=== PATIENT | male | born 1980 | race Caucasian/White ===

== ENCOUNTER → 2018-11-29 12:49 | Outpatient (CLI) | payer OTHER, SELFPAY ==
--- NOTE | 2018-11-29 12:52 | MR_ITS ---
MR shoulder LT w con, IR arthrogram shoulder LT HISTORY:Left shoulder injury with pain and limited range of motion ITS.REASON: ARTHROGRAM ORDERING PHYSICIAN: Suad Talamantes MD PATIENT AGE: 38 years Comparison: 09/25/2018 Arthrogram technique: Following obtaining informed consent using fluoroscopic guidance and local anesthesia with 1% buffered lidocaine, a 25-gauge needle was inserted into the shoulder joint using the anterior technique. Approximately 15 mL 7 mixture of Optiray, lidocaine, and gadolinium was injected into the shoulder joint. The patient tolerated the procedure well without evidence of immediate complication. TECHNIQUE: Standard multiplanar multiecho sequences are performed without contrast. FINDINGS: Arthrogram images show no evidence of rotator cuff tear. Contrast is present within the shoulder joint. No evidence of any subcapsular this. MRI arthrogram: Mild hypertrophic changes are present at the acromioclavicular joint. No evidence of complete or full-thickness tear of the supraspinatus tendon. There is some irregularity along the undersurface of the supraspinatus tendon distally with a small focal area of increased T2 signal in this region suggesting a partial undersurface tear distally. This does show some filling of contrast on the MR arthrogram images.. The infraspinatus, subscapularis, and teres minor tendons have an unremarkable appearance. No evidence of labral tear. The glenohumeral ligaments have an unremarkable appearance. The bicipital tendon is in place. IMPRESSION: 1. Findings compatible with a partial undersurface tear of the distal aspect of the supraspinatus tendon. No full-thickness or complete tear evident. 2. No evidence of labral tear.
== END ==
PROVIDERS: PCP Family Medicine; Visit Provider Orthopaedic Surgery
DX: S46.912A Strain of unspecified muscle, fascia and tendon at shoulder and upper arm level, left arm, initial encounter (principal)
CPT/HCPCS: 73040; 73222; Q9967

== ENCOUNTER 2019-01-10 15:30 | Outpatient (RCR) | payer OTHER, SELFPAY ==
--- NOTE | 2018-12-17 15:49 | HMH.OTOPEV ---
OT Inpatient Evaluation Rehab OT Outpatient Eval Start: 12/17/18 15:18 Freq: Status: Active Protocol: Document 12/17/18 15:36 RMARSHALL (Rec: 12/17/18 15:48 [id number] Electronically Signed By Neha Rangel OT 12/17/18 15:36 Outpatient Therapy Subjective History Subjective History Pt is a 38 year old male who reports to therapy for initial evaluation to left shoulder. Pt seen this date due to an injury of the left shoulder while at work in 09/2018. Pt does demonstrate with slight decrease in AROM and strength in left shoulder. Pt will continue to be seen twice a week in order to address these deficits. Chief Complaint Pain Stiff Weakness Symptom Type Ache Throb Sharp Burning Symptoms Relieved By Nothing Symptoms Aggravated By Physical Activity Lifting Prior Functional Limitations None Current Functional Limitations Reaching Lifting Housework Dressing Driving Sleeping Recreation Activity Symptom Description Constant but Variable Level of pain today (0-10) 1 Pain scale - at its best (0-10) 1 Pain scale - at its worst (0-10) 8 Shoulder/Elbow Eval Shoulder Objective Measurements Shoulder ROM Left Shoulder Abduction Active Range of 128 degrees Motion (degrees) Shoulder Flexion Active Range of Motion 136 degrees (degrees) Query Text: Shoulder External Rotation Active Range 65 degrees of Motion (degrees) Shoulder Internal Rotation Active Range 60 degrees of Motion (degrees) pain with active ROM shoulder exam left standard pain with passive ROM shoulder exam left standard decreased ROM shoulder exam standard left full ROM shoulder exam standard right Shoulder MMT Shoulder Abduction Strength Grade 4- Good- Shoulder Extension Strength Grade 4- Good- Shoulder Flexion Strength Grade 4- Good- Shoulder External Rotation Strength 4- Good- Grade Shoulder Internal Rotation Strength 4- Good-
--- NOTE | 2018-12-17 15:57 | HMH.OTOPEV ---
OT Inpatient Evaluation Rehab OT Outpatient Eval Start: 12/17/18 15:18 Freq: Status: Active Protocol: Document 12/17/18 15:36 RMARSHALL (Rec: 12/17/18 15:48 [id number] Electronically Signed By Neha Rangel OT 12/17/18 15:36 Outpatient Therapy Subjective History Subjective History Pt is a 38 year old male who reports to therapy for initial evaluation to left shoulder. Pt seen this date due to an injury of the left shoulder while at work in 09/2018. Pt does demonstrate with slight decrease in AROM and strength in left shoulder. Pt will continue to be seen twice a week in order to address these deficits. Chief Complaint Pain Stiff Weakness Symptom Type Ache Throb Sharp Burning Symptoms Relieved By Nothing Symptoms Aggravated By Physical Activity Lifting Prior Functional Limitations None Current Functional Limitations Reaching Lifting Housework Dressing Driving Sleeping Recreation Activity Symptom Description Constant but Variable Level of pain today (0-10) 1 Pain scale - at its best (0-10) 1 Pain scale - at its worst (0-10) 8 Shoulder/Elbow Eval Shoulder Objective Measurements Shoulder ROM Left Shoulder Abduction Active Range of 128 degrees Motion (degrees) Shoulder Flexion Active Range of Motion 136 degrees (degrees) Query Text: Shoulder External Rotation Active Range 65 degrees of Motion (degrees) Shoulder Internal Rotation Active Range 60 degrees of Motion (degrees) pain with active ROM shoulder exam left standard pain with passive ROM shoulder exam left standard decreased ROM shoulder exam standard left full ROM shoulder exam standard right Shoulder MMT Shoulder Abduction Strength Grade 4- Good- Shoulder Extension Strength Grade 4- Good- Shoulder Flexion Strength Grade 4- Good- Shoulder External Rotation Strength 4- Good- Grade Shoulder Internal Rotation Strength 4- Good-
== END 2019-01-10 15:35 | disposition home or self-care (01) ==
LOC: OT 15:30
PROVIDERS: Visit Provider Orthopaedic Surgery
DX: M25.512 Pain in left shoulder (principal)
CPT/HCPCS: 97014; 97110; 97165; G0283

== ENCOUNTER 2020-07-09 17:09 | Emergency (ER) | payer SELFPAY ==
--- NOTE | 2020-07-09 17:35 | XR_ITS ---
PROCEDURE: XR HAND RT MIN 3V CLINICAL INDICATION: fall from truck COMPARISON: CT ABDPELW CT ABD PELVIS W/ CONTRAST from 05/07/2017 FINDINGS: No fracture or dislocation. No lytic or blastic change. There is normal mineralization. The joint spaces are well-preserved. No significant degenerative/arthritic changes. No erosive changes evident. Other findings:None. IMPRESSION: No acute findings. Dictated by: Dr. Jacob Gambino MD 07/09/2020 19:43 Dr. Jacob Gambino MD in [place] 07/09/2020 19:43
--- NOTE | 2020-07-09 17:35 | XR_ITS ---
PROCEDURE: XR WRIST RT MIN 3V CLINICAL INDICATION: fall from truck COMPARISON: No exams were available for comparison FINDINGS: The distal radius and ulna appear intact. The carpal bones all appear normal. The soft tissues are normal, the pronator quadratus fat pad is well seen,a normal finding tending to exclude an effusion within the wrist joint. IMPRESSION: No acute findings. Dictated by: Dr. Jacob Gambino MD 07/09/2020 19:42 Dr. Jacob Gambino MD in [place] 07/09/2020 19:42
[2020-07-09 17:38] VITALS: BP 124/78; PULSE 84; RESP 14; TEMP 37.1; O2SAT 99; BMI 31.9
--- NOTE | 2020-07-09 18:03 | HMH.EDUTC ---
[facility] [place] Clinical Impression: Right wrist sprain Qualifiers: Encounter type: initial encounter Qualified Code(s): S63.501A - Unspecified sprain of right wrist, initial encounter Sprain of right hand Qualifiers: Encounter type: initial encounter Qualified Code(s): S63.91XA - Sprain of unspecified part of right wrist and hand, initial encounter Disposition: Home, Self-Care Condition on Discharge: Good Instructions: Wrist Sprain, DI for Wrist Sprain Additional Instructions: Rest the extremity, apply ice for 15 minutes as tolerated three or four times per day, Elevate the extremity as tolerated while you are resting. Take ibuprofen for pain. I sent in a prescription to your pharmacy. Follow up with Dr. Talamantes (orthopedics). I put in a referral but you need to call her office and schedule an appointment. Follow up with your regular doctor. GO TO THE ER FOR ANY WORSENING SYMPTOMS Prescriptions: Ibuprofen [Ibuprofen 600mg Tablet] 600 mg PO Q6HP PRN #30 tab PRN Reason: Mild Pain Transmission Status: Received by [id number] Referrals: Rody De La Paz MD [Primary Care Provider] - Suad Talamantes MD [Physician] - Time of Disposition: 18:44 Medical Decision Making - Medical Records Medical records reviewed: No: I reviewed the patient's medical records. - Sanjeev Inquiry Pt receiving controlled substance: No Vital Signs: 07/09/20 17:38 07/09/20 18:49 Temperature 98.7 F 98.7 F Temperature Source Oral Oral Pulse Rate 84 Pulse Rate [Radial] 84 Respiratory Rate 14 14 Blood Pressure 124/78 Blood Pressure [Right Arm] 124/78 Blood Pressure Mean [Right Arm] 93 Blood Pressure Source Automatic Cuff Blood Pressure Source [Right Arm] Automatic Cuff Blood Pressure Position Sitting Blood Pressure Position [Right Arm] Sitting 02 Sat by Pulse Oximetry 99 Oxygen Delivery Method Room Air Room Air - Radiology Data #1 Image(s): Wrist Image Reviewed: Yes I reviewed the patient's radiology image, Yes I have reviewed radiologist's interpretation Preliminary Findings: No Fracture Seen PROCEDURE: XR WRIST RT MIN 3V CLINICAL INDICATION: fall from truck COMPARISON: No exams were available for comparison FINDINGS: The distal radius and ulna appear intact. The carpal bones all appear normal. The soft tissues are normal, the pronator quadratus fat pad is well seen,a normal finding tending to exclude an effusion within the wrist joint. IMPRESSION: No acute findings. Dictated by: Dr. Jacob Gambino MD 07/09/2020 19:42 Dr. Jacob Gambino MD in [place] 07/09/2020 19:42 #2 Image(s): Hand Image Reviewed: Yes I reviewed the patient's radiology image, Yes I have reviewed radiologist's interpretation Preliminary Findings: No Fracture Seen PROCEDURE: XR HAND RT MIN 3V CLINICAL INDICATION: fall from truck COMPARISON: CT ABDPELW CT ABD PELVIS W/ CONTRAST from 05/07/2017 FINDINGS: No fracture or dislocation. No lytic or blastic change. There is normal mineralization. The joint spaces are well-preserved. No significant degenerative/arthritic changes. No erosive changes evident. Other findings:None. IMPRESSION: No acute findings. Dictated by: Dr. Jacob Gambino MD 07/09/2020 19:43 Dr. Jacob Gambino MD in [place] 07/09/2020 19:43 [facility] [place] - General Stated complaint: AO 07/08/20 Fell off truck, injured r hand Time Seen by Provider: 07/09/20 18:03 Mode of Arrival: Ambulatory Source of Information: Patient Limitations: No Limitations Description of Symptoms (Recalled from Triage Doc. by RN): slid off of truck- right hand and wrist injury HEENT Symptoms (Recalled from RN notes): No Resp Symptoms (Recalled from RN notes): No Skin Symptoms (Recalled from RN notes): No MS Symptoms (Recalled from RN notes): Yes Functional Status (Recalled from RN notes): wnl - History of Present Illness Provider Complaint: He c/o right hand and wrist pain since he f
[2020-07-09 18:49] VITALS: BP 124/78; PULSE 84; RESP 14; TEMP 37.1; O2SAT 99
== END 2020-07-09 18:51 | disposition home or self-care (01) ==
PROVIDERS: Emergency Provider Nurse Practitioner Family; PCP Family Medicine
DX: S63.501A Unspecified sprain of right wrist, initial encounter (principal); S63.91XA Sprain of unspecified part of right wrist and hand, initial encounter; V58.4XXA Person boarding or alighting a pick-up truck or van injured in noncollision transport accident, initial encounter; Y92.019 Unspecified place in single-family (private) house as the place of occurrence of the external cause; F17.210 Nicotine dependence, cigarettes, uncomplicated
CPT/HCPCS: 29125; 73110; 73130; 99201

== ENCOUNTER 2021-08-19 23:01 | Emergency (ER) | payer OTHER, SELFPAY ==
[2021-08-19 23:01] VITALS: BP 141/91; PULSE 79; RESP 16; TEMP 36.8; O2SAT 98; BMI 29.0
--- NOTE | 2021-08-19 23:01 | ECG_ITS ---
APPROVED REPORT Exam: Resting ECG HR:72 bpm ECG Measurements Heart Rate 72 AXES AR 152 P 60 QRSd 90 QRS 94 QT 410 T 64 QTc 448 Conclusion Normal sinus rhythm Rightward axis Borderline ECG Electronically signed by : Alex Pretty MD 08/21/2021 08:32:16
--- NOTE | 2021-08-19 23:13 | XR_ITS ---
PROCEDURE INFORMATION: Exam: XR Chest Exam date and time: 08/19/2021 11:13 PM Age: 41 years old Clinical indication: Pain; Chest pressure; Additional info: Chest pain TECHNIQUE: Imaging protocol: XR of the chest. Views: 1 view. COMPARISON: SHOULDLTW MR shoulder LT w con 11/29/2018 1:31 PM FINDINGS: Lungs: Unremarkable. No consolidation. Pleural spaces: Unremarkable. No pleural effusion. No pneumothorax. Heart/Mediastinum: Unremarkable. No cardiomegaly. Bones/joints: Unremarkable. IMPRESSION: No acute findings.
[2021-08-19 23:20] LABS: Basophils # 0.1 K/mm3 (0-0.2); Eosinophils % 0.3 % (0.1-12.0); Hematocrit 49.6 % (42.0-52.0); Hemoglobin 16.7 g/dL (14.1-18.0); Lymphocytes # 1.7 K/mm3 (0.7-4.5); Lymphocytes % 12.7 % (10-50); Mean Corpuscular HGB Conc 33.6 g/dL (31.8-35.4); Mean Corpuscular Hemoglobin 30.6 pg (27.0-31.2); Mean Platelet Volume 7.1 fl (7.4-10.4); Monocytes # 0.5 K/mm3 (0.1-1.0); Monocytes % 3.4 % (1.7-9.3); Neutrophils # 11.3 K/mm3 (1.8-7.8); Neutrophils % 82.6 % (37.0-80.0); Platelet Count 309 K/mm3 (142-424); Red Blood Count 5.46 M/mm3 (4.60-6.20); Red Cell Distribution Width 13.8 % (11.5-17.5); White Blood Count 13.6 K/mm3 (4.8-10.8)
[2021-08-19 23:21] LABS: Chloride 101 mmol/L (98-107); Potassium 3.3 mmoL/L (3.5-5.1); Sodium 139 mmol/L (136-145)
[2021-08-19 23:23] LABS: Alanine Aminotransferase 26 U/L (12-78); Aspartate Amino Transferase 32 U/L (17-59); Blood Urea Nitrogen 4 mg/dl (9-20); Creatinine Clearance Estimated 162 mL/min (50-200); Estimated Glomerular Filt Rate 123 ml/min (>60); GFR (African American) 149 ML/MIN (>60)
[2021-08-19 23:24] LABS: Albumin Level 4.7 g/dl (3.5-5.0); Albumin/Globulin Ratio 1.6 (1.1-1.8); Alkaline Phosphatase 67 U/L (38-126); Anion Gap 11.3 mEq/L (5-15); Bilirubin,Total 0.4 mg/dl (0.2-1.3); Calcium 9.5 mg/dl (8.4-10.2); Carbon Dioxide 30 mmol/L (22.0-30.0); Globulin 2.9 g/dL (1.3-3.2); Glucose 117 mg/dl (74-100); Lipase 54 U/L (23-300); Total Protein,Serum 7.6 g/dl (6.3-8.2)
[2021-08-19 23:36] LABS: Troponin I < 0.01 ng/ml (0.00-0.034)
--- NOTE | 2021-08-19 23:47 | HMH.EDCP ---
ED Disposition Clinical Impression: Atypical chest pain Disposition: Home, Self-Care Condition on Discharge: Good Instructions: DI for Atypical Chest Pain Additional Instructions: Recommend follow-up with your PCP for physical exam and follow-up. If you have return of chest pain or any other new or worsening symptoms please return to the emergency department for further evaluation. Referrals: Rody De La Paz MD [Primary Care Provider] - - Critical Care Critical Care Time: No Attestation: On 08/19/21, the high probability of a clinically significant, sudden or life threatening deterioration of the following system(s) required my full and direct attention, intervention and personal management. The time I documented below is in addition to time spent performing reported procedures but includes the following listed in this critical care notation. Medical Decision Making - Medical Records Medical records reviewed: Yes: I reviewed the patient's medical records. - Sanjeev Inquiry Pt receiving controlled substance: No Vital Signs: 08/19/21 23:01 08/20/21 00:07 08/20/21 00:30 Temperature 98.3 F Temperature Source Oral Pulse Rate 75 71 Pulse Rate [Apical] 79 Respiratory Rate 16 18 Blood Pressure 114/62 134/90 Blood Pressure [Right Arm] 141/91 H Blood Pressure Mean 96 Blood Pressure Mean [Right Arm] 107 Blood Pressure Source [Right Arm] Automatic Cuff Blood Pressure Position [Right Arm] Sitting 02 Sat by Pulse Oximetry 98 97 95 Oxygen Delivery Method Room Air Room Air Room Air 08/20/21 01:00 08/20/21 01:30 Temperature Temperature Source Pulse Rate 78 62 Pulse Rate [Apical] Respiratory Rate 14 16 Blood Pressure 130/88 121/72 Blood Pressure [Right Arm] Blood Pressure Mean 98 88 Blood Pressure Mean [Right Arm] Blood Pressure Source [Right Arm] Blood Pressure Position [Right Arm] 02 Sat by Pulse Oximetry 95 96 Oxygen Delivery Method Room Air Room Air - Lab Data Lab Results 08/19/21 23:00: WBC 13.6 H, RBC 5.46, Hgb 16.7, Hct 49.6, MCV 91.0, MCH 30.6, MCHC 33.6, RDW 13.8, Plt Count 309, MPV 7.1 L, Neut % (Auto) 82.6 H, Lymph % (Auto) 12.7, [place] % (Auto) 3.4, Eos % (Auto) 0.3, Baso % (Auto) 1.0, Neut # (Auto) 11.3 H, Lymph # (Auto) 1.7, [place] # (Auto) 0.5, Eos # (Auto) 0.0, Baso # (Auto) 0.1 08/19/21 23:00: Sodium 139, Potassium 3.3 L, Chloride 101, Carbon Dioxide 30, Anion Gap 11.3, BUN 4 L, Creatinine 0.70, Estimated Creat Clear 162, Estimated GFR 123, Est GFR ( Amer) 149, Glucose 117 H, Calcium 9.5, Total Bilirubin 0.4, AST 32, ALT 26, Alkaline Phosphatase 67, Troponin I < 0.01, Total Protein 7.6, Albumin 4.7, Globulin 2.9, Albumin/Globulin Ratio 1.6, Lipase 54 08/20/21 01:40: Troponin I < 0.01 Result diagrams: 08/19/21 23:00 08/19/21 23:00 Orders (Tests/Meds): ED MEDICATIONS Discontinued Medications Generic Name Dose Route Start Last Admin Trade Name Freq PRN Reason Stop Dose Admin Belladonna Alkaloids 60 ml 08/19/21 23:14 08/19/21 23:25 Gi Cocktail 60ml Udc PO 08/19/21 23:15 60 ml ONCE ONE Administration ORDERS Category Date Time Status Troponin I Q3H Lab 08/20/21 05:15 Ordered EKG Request [ECG Request by /Charan] Stat Y 08/19/21 23:14 Ordered - Radiology Data #1 Image(s): Chest Image Reviewed: Yes I have reviewed radiologist's interpretation PROCEDURE INFORMATION: Exam: XR Chest Exam date and time: 08/19/2021 11:13 PM Age: 41 years old Clinical indication: Pain; Chest pressure; Additional info: Chest pain TECHNIQUE: Imaging protocol: XR of the chest. Views: 1 view. COMPARISON: SHOULDLTW MR shoulder LT w con 11/29/2018 1:31 PM FINDINGS: Lungs: Unremarkable. No consolidation. Pleural spaces: Unremarkable. No pleural effusion. No pneumothorax. Heart/Mediastinum: Unremarkable. No cardiomegaly. Bones/joints: Unremarkable. IMPRESSION: No acute findings. - ECG Data Tracing #1 I
[2021-08-20 00:07] VITALS: BP 114/62; PULSE 75; RESP 18; O2SAT 97
[2021-08-20 00:30] VITALS: BP 134/90; PULSE 71; O2SAT 95
[2021-08-20 01:00] VITALS: BP 130/88; PULSE 78; RESP 14; O2SAT 95
[2021-08-20 01:30] VITALS: BP 121/72; PULSE 62; RESP 16; O2SAT 96
[2021-08-20 02:10] LABS: Troponin I < 0.01 ng/ml (0.00-0.034)
[2021-08-20 02:11] VITALS: BP 123/78; PULSE 60; RESP 16; TEMP 36.8; O2SAT 99
== END 2021-08-20 02:17 | disposition home or self-care (01) ==
PROVIDERS: Emergency Provider Student in an Organized Health Care Education/Training Program; PCP Family Medicine
DX: R07.89 Other chest pain (principal); F17.210 Nicotine dependence, cigarettes, uncomplicated
CPT/HCPCS: 71045; 80053; 83690; 84484; 85025; 93005; 99283